=== PATIENT | male | born 1935 | race Caucasian/White ===

== ENCOUNTER 2018-05-18 12:24 | Emergency (ER) | payer SELFPAY ==
[~2018-05-18] VITALS: Ht 193 cm; Wt 117.9 kg
[2018-05-18] MEDS ORDERED: ATOR10 PO (12:54)
[2018-05-18] MEDS ORDERED: AMLO10 PO (12:54)
[2018-05-18] MEDS ORDERED: ALLO300 PO (12:54)
[2018-05-18] MEDS ORDERED: BICALUTAMIDE50 MG PO (12:54)
[2018-05-18] MEDS ORDERED: CALCIUM 500 +1 EAC3 PO (12:55)
[2018-05-18] MEDS ORDERED: DIGOX125 MCG PO (12:56)
[2018-05-18] MEDS ORDERED: Fish Oil 10001000 MG PO (12:56)
[2018-05-18] MEDS ORDERED: LUPRON DEPOT45 MG IM (12:57)
[2018-05-18 12:58] LABS: BASOPHILS ABSOLUTE AUTO 0.01 K/mm3 (0.00-0.23); BASOPHILS PERCENT AUTO 0 % (0-2); EOSINOPHILS ABSOLUTE AUTO 0.04 K/mm3 (0.00-0.68); EOSINOPHILS PERCENT AUTO 0 % (0-6); Hematocrit 45.6 % (37.0-53.0); Hemoglobin 14.6 g/dL (13.5-17.5); IMMATURE GRAN ABSOLUTE AUTO 0.05 K/mm3 (0.00-0.10); IMMATURE GRAN PERCENT AUTO 1 % (0-1); LYMPHOCYTES ABSOLUTE AUTO 1.52 K/mm3 (0.84-5.20); LYMPHOCYTES PERCENT AUTO 16 % (21-46); MONOCYTES ABSOLUTE AUTO 0.64 K/mm3 (0.16-1.47); MONOCYTES PERCENT AUTO 7 % (4-13); Mean Corpuscular HGB 30.2 pg (26.0-34.0); Mean Corpuscular Volume 94 fL (80-100); Mean Platelet Volume 10.8 fL (9.1-12.4); NEUTROPHILS ABSOLUTE AUTO 7.14 K/mm3 (1.96-9.15); NEUTROPHILS PERCENT AUTO 76 % (41-73); Platelet Count 224 K/mm3 (150-400); RDW Coefficient Variation 13.7 % (11.7-14.2); RDW Standard Deviation 48.2 fL (35.1-46.3); Red Blood Cell Count 4.83 M/mm3 (4.30-5.90)
[2018-05-18] MEDS ORDERED: Metoprolol Tart50 MG PO (12:58)
[2018-05-18] MEDS ORDERED: LISI5 PO (12:58)
[2018-05-18] MEDS ORDERED: TAMS.4ER PO (12:59)
[2018-05-18 13:00] LABS: Bilirubin, Urine Neg (Neg); Blood, Urine 2+ (Neg); Glucose Qualitative, Urine 2+ (Neg); Ketones, Urine Neg (Neg); Leukocyte Esterase, Urine Neg (Neg); Nitrite, Urine Neg (Neg); Protein, Urine 4+ (Neg); Specific Gravity, Urine 1.015 (1.003-1.022); Urobilinogen, Urine NORM (Normal)
[2018-05-18 13:12] LABS: Bun/Creatinine Ratio 13.5 (12.0-20.0); Calcium, Blood 9.3 mg/dL (8.5-10.1); Creatinine, Blood 3.42 mg/dL (0.60-1.20); Potassium, Blood 4.1 mmol/L (3.5-5.5)
[2018-05-18 13:29] LABS: Appearance, Urine Clear (Clear); Color, Urine Yellow (P-Yellow); Squamous Epithelial Cells Few /hpf (Few)
[2018-05-18 13:30] LABS: Bacteria Not Seen /hpf; Red Blood Cells, Urine 0-2 /hpf (0-2); White Blood Cells, Urine Not Seen /hpf (0-5)
[2018-05-18] MEDS ORDERED: COLCRYS0.6 MG PO (19:43)
== END 2018-05-18 14:39 | disposition home or self-care (01) ==
LOC: ER 12:24
PROVIDERS: Emergency Medicine
DX: R53.1 Weakness (principal); I12.9 Hypertensive chronic kidney disease with stage 1 through stage 4 chronic kidney disease, or unspecified chronic kidney disease; E11.22 Type 2 diabetes mellitus with diabetic chronic kidney disease; N18.9 Chronic kidney disease, unspecified; R29.6 Repeated falls; F17.210 Nicotine dependence, cigarettes, uncomplicated; Z88.8 Allergy status to other drugs, medicaments and biological substances; Z91.018 Allergy to other foods; Z79.899 Other long term (current) drug therapy; W19.XXXA Unspecified fall, initial encounter
CPT/HCPCS: 36415; 70450; 71045; 80048; 81001; 85025; 93005; 93010; 99285-25

== ENCOUNTER 2018-10-30 16:31 | Emergency (ER) | payer MEDICARE ==
[~2018-10-30] VITALS: Ht 193 cm; Wt 99.8 kg
[~2018-10-30 16:31] MED LIST: ALLO300 PO; AMLO10 PO; ATOR10 PO; BICALUTAMIDE50 MG PO; CALCIUM 500 +1 EAC3 PO; COLCRYS0.6 MG PO; DIGOX125 MCG PO; Fish Oil 10001000 MG PO; LISI5 PO; LUPRON DEPOT45 MG IM; Metoprolol Tart50 MG PO; TAMS.4ER PO
[2018-10-30 17:03] LABS: BASOPHILS ABSOLUTE AUTO 0.01 K/mm3 (0.00-0.23); BASOPHILS PERCENT AUTO 0 % (0-2); EOSINOPHILS ABSOLUTE AUTO 0.12 K/mm3 (0.00-0.68); EOSINOPHILS PERCENT AUTO 1 % (0-6); Hematocrit 35.5 % (37.0-53.0); Hemoglobin 11.3 g/dL (13.5-17.5); IMMATURE GRAN ABSOLUTE AUTO 0.05 K/mm3 (0.00-0.10); IMMATURE GRAN PERCENT AUTO 1 % (0-1); LYMPHOCYTES ABSOLUTE AUTO 1.34 K/mm3 (0.84-5.20); LYMPHOCYTES PERCENT AUTO 15 % (21-46); MONOCYTES ABSOLUTE AUTO 0.59 K/mm3 (0.16-1.47); MONOCYTES PERCENT AUTO 7 % (4-13); Mean Corpuscular HGB 30.1 pg (26.0-34.0); Mean Corpuscular HGB Conc 31.8 g/dL (31.5-36.5); Mean Corpuscular Volume 94 fL (80-100); NEUTROPHILS ABSOLUTE AUTO 6.91 K/mm3 (1.96-9.15); NEUTROPHILS PERCENT AUTO 77 % (41-73); Platelet Count 215 K/mm3 (150-400); RDW Coefficient Variation 14.1 % (11.7-14.2); RDW Standard Deviation 48.9 fL (35.1-46.3); Red Blood Cell Count 3.76 M/mm3 (4.30-5.90); White Blood Cell Count 9.02 K/mm3 (4.00-11.30)
[2018-10-30 17:31] LABS: Alanine Aminotransfer (ALT/SGP 45 U/L (12-78); Albumin, Blood 1.9 g/dL (3.4-5.0); Albumin/Globulin Ratio 0.4 (0.8-1.8); Alk Phos 115 U/L (50-136); Anion Gap 7 mmol/L (6-16); Aspartate Aminotrans (AST/SGOT 43 U/L (12-37); Bilirubin, Total 0.5 mg/dL (0.1-1.0); Blood Urea Nitrogen 58 mg/dL (8-24); Bun/Creatinine Ratio 17.3 (12.0-20.0); CO2, Blood 23 mmol/L (21-32); Calcium, Blood 8.8 mg/dL (8.5-10.1); Chloride, Blood 110 mmol/L (98-108); Creatinine, Blood 3.36 mg/dL (0.60-1.20); Ethanol (Alcohol), Blood, Med <3 mg/dL; Globulin, Blood 4.4 g/dL (2.2-4.0); Glomerular Filtration Rate 19 (60-); Glucose, Blood 152 mg/dL (70-99); Potassium, Blood 3.4 mmol/L (3.5-5.5); Sodium, Blood 140 mmol/L (136-145); Total Protein, Blood 6.3 g/dL (6.4-8.2); Troponin I 0.032 ng/mL (0.000-0.040)
[2018-10-30 18:38] LABS: Source, Urine Clean Catch
[2018-10-30 18:43] LABS: Bilirubin, Urine Neg (Neg); Blood, Urine 2+ (Neg); Glucose Qualitative, Urine 1+ (Neg); Ketones, Urine 1+ (Neg); Leukocyte Esterase, Urine 1+ (Neg); Nitrite, Urine Neg (Neg); Protein, Urine 4+ (Neg); Urobilinogen, Urine NORM (Normal)
[2018-10-30] MEDS ORDERED: Prednisone20 MG PO (18:52)
[2018-10-30 18:56] LABS: U Amphetamine Screen Not Detected; U Barbituate Screen Not Detected; U Benzodiazapine Screen Not Detected; U Buprenorphine Screen Not Detected; U Cannabinoids Screen Not Detected; U Cocaine Screen Not Detected; U Methadone Screen Not Detected; U Methamphetamine Screen Not Detected; U Opiates Screen Not Detected; U Oxycodone Screen Not Detected; U Phencyclidine Screen Not Detected; U Propoxyphene Screen Not Detected
[2018-10-30 18:57] LABS: Appearance, Urine Clear (Clear); Color, Urine Yellow (P-Yellow)
[2018-10-30 19:02] LABS: Red Blood Cells, Urine 0-2 /hpf (0-2); Squamous Epithelial Cells Few /hpf (Few)
[2018-10-30 19:03] LABS: Bacteria Many /hpf
[2018-10-30] MEDS ORDERED: CEPH500 PO (19:11)
== END 2018-10-30 19:25 | disposition home or self-care (01) ==
LOC: ER 16:31
PROVIDERS: Physician Assistant
DX: J44.1 Chronic obstructive pulmonary disease with (acute) exacerbation (principal); R62.7 Adult failure to thrive; I48.91 Unspecified atrial fibrillation; F17.210 Nicotine dependence, cigarettes, uncomplicated; Z79.52 Long term (current) use of systemic steroids; Z79.899 Other long term (current) drug therapy
CPT/HCPCS: 70450; 71046; 80053; 81001; 83880; 84484; 85025; 87086; 93005; 93010; 94640; 96374; 96375; 99285-25; G0480; J0696; J2930

== ENCOUNTER 2018-12-07 16:49 | Inpatient (IN) | payer MEDICARE ==
[~2018-12-07] VITALS: Ht 193 cm; Wt 94.5 kg
[~2018-12-07 16:49] MED LIST changes: +CEPH500 PO; +Prednisone20 MG PO
[2018-12-07 17:34] LABS: BASOPHILS ABSOLUTE AUTO 0.02 K/mm3 (0.00-0.23); BASOPHILS PERCENT AUTO 0 % (0-2); EOSINOPHILS PERCENT AUTO 1 % (0-6); Hemoglobin 11.3 g/dL (13.5-17.5); IMMATURE GRAN ABSOLUTE AUTO 0.03 K/mm3 (0.00-0.10); IMMATURE GRAN PERCENT AUTO 0 % (0-1); LYMPHOCYTES ABSOLUTE AUTO 1.44 K/mm3 (0.84-5.20); LYMPHOCYTES PERCENT AUTO 19 % (21-46); MONOCYTES ABSOLUTE AUTO 0.43 K/mm3 (0.16-1.47); MONOCYTES PERCENT AUTO 6 % (4-13); Mean Corpuscular HGB 29.4 pg (26.0-34.0); Mean Corpuscular HGB Conc 30.5 g/dL (31.5-36.5); Mean Corpuscular Volume 96 fL (80-100); Mean Platelet Volume 11.2 fL (9.1-12.4); NEUTROPHILS ABSOLUTE AUTO 5.57 K/mm3 (1.96-9.15); NEUTROPHILS PERCENT AUTO 73 % (41-73); Platelet Count 195 K/mm3 (150-400); RDW Coefficient Variation 14.6 % (11.7-14.2); RDW Standard Deviation 52.1 fL (35.1-46.3); Red Blood Cell Count 3.84 M/mm3 (4.30-5.90); White Blood Cell Count 7.59 K/mm3 (4.00-11.30)
[2018-12-07 18:03] LABS: Albumin, Blood 2.3 g/dL (3.4-5.0); Albumin/Globulin Ratio 0.5 (0.8-1.8); Bilirubin, Total 0.5 mg/dL (0.1-1.0); Calcium, Blood 8.5 mg/dL (8.5-10.1); Creatinine, Blood 3.61 mg/dL (0.60-1.20); Globulin, Blood 4.3 g/dL (2.2-4.0); Potassium, Blood 4.1 mmol/L (3.5-5.5); Total Protein, Blood 6.6 g/dL (6.4-8.2)
[2018-12-07] MEDS ORDERED: PANT20 PO (18:46)
[2018-12-07] MEDS ORDERED: FINA5 PO (20:34)
[2018-12-07] MEDS ORDERED: TAMS.4ER PO (20:34)
[2018-12-07] MEDS ORDERED: Oyster Shell C500 MG PO (22:06)
[2018-12-07] MEDS ORDERED: ERGO400 PO (22:07)
--- NOTE | 2018-12-07 22:56 | NUR ---
PROVIDER COMMUNICATION MEGHNA CAMERON NOTIFIED OVER PHONE AT THIS TIME OF BNP; ORDER FOR IV MAG CLARIFED AND NOTIFIED OF PT DESIRE TO BE FULL CODE.
[2018-12-08 05:26] LABS: Hematocrit 33.5 % (37.0-53.0); Hemoglobin 10.5 g/dL (13.5-17.5); Mean Corpuscular HGB 29.8 pg (26.0-34.0); Mean Corpuscular HGB Conc 31.3 g/dL (31.5-36.5); Mean Corpuscular Volume 95 fL (80-100); Mean Platelet Volume 11.1 fL (9.1-12.4); Platelet Count 193 K/mm3 (150-400); RDW Coefficient Variation 14.8 % (11.7-14.2); RDW Standard Deviation 50.8 fL (35.1-46.3); Red Blood Cell Count 3.52 M/mm3 (4.30-5.90); White Blood Cell Count 7.35 K/mm3 (4.00-11.30)
[2018-12-08 05:46] LABS: International Normalized Ratio 1.02; Prothrombin Time Results 10.8 Sec (9.7-11.5)
[2018-12-08 05:53] LABS: Albumin, Blood 2.1 g/dL (3.4-5.0); Albumin/Globulin Ratio 0.6 (0.8-1.8); Bilirubin, Total 0.5 mg/dL (0.1-1.0); Bun/Creatinine Ratio 9.8 (12.0-20.0); Calcium, Blood 8.3 mg/dL (8.5-10.1); Creatinine, Blood 3.48 mg/dL (0.60-1.20); Globulin, Blood 3.8 g/dL (2.2-4.0); Potassium, Blood 3.7 mmol/L (3.5-5.5); Total Protein, Blood 5.9 g/dL (6.4-8.2); Troponin I 0.11 ng/mL (0.000-0.040)
--- NOTE | 2018-12-08 06:03 | NUR ---
SHIFT SUMMARY PT A&O X4 T/O SHIFT. PT ADMITTED TO UNIT FROM ER. PT STOOD AND AMBULATED TO BED FROM [facility]. RA; BP MONITORED AND MANAGED PER EMAR. TELEMETRY IN PLACE; SR WITH PAC'S PER MAINTENANCE SHOP MANAGER THIS AM AT 66. PT DENIES SOB, NAUSEA AND CP. ABD PAIN MANAGED PER EMAR. RA.SCD'S TO BLE'S. CALL LIGHT IN REACH. WCTM UNTIL REPORT TO DAY SHIFT RN.
--- NOTE | 2018-12-08 10:35 | NUR ---
Echocardiogram completed.
--- NOTE | 2018-12-08 11:44 | NUR ---
Spiritual care visit conducted. Patient openly shared about the loss of his living arrangements due to the duplex being condemned, about his spiritual journey and about his family unit complications. Patient voiced some concern regarding his upcoming surgery and about getting well enough to move to [place] to see his "girlfriend." I listened empathically, provided companionship, facilitated a life review. explored patient's belief system and provided prayer (for his surgery and his overall health). Patient responded well and displayed evidence of restored raheel.
--- NOTE | 2018-12-08 14:50 | NUR ---
ASSUMED CARE OF PATIENT AT THIS TIME. PATIENT SLEEPING W/O S/SX OF DISCOMFORT.
--- NOTE | 2018-12-08 18:16 | NUR ---
PATIENT DENIES PAIN/NAUSEA AT THIS TIME. VOIDING WELL TO URINAL. NO ACUTE CHANGES. NPO AFTER 2400 FOR PLAN TO OC TO OR TOMORROW.
[2018-12-09 04:05] LABS: BASOPHILS ABSOLUTE AUTO 0.02 K/mm3 (0.00-0.23); BASOPHILS PERCENT AUTO 0 % (0-2); EOSINOPHILS ABSOLUTE AUTO 0.15 K/mm3 (0.00-0.68); EOSINOPHILS PERCENT AUTO 2 % (0-6); Hematocrit 33.7 % (37.0-53.0); Hemoglobin 10.4 g/dL (13.5-17.5); IMMATURE GRAN ABSOLUTE AUTO 0.02 K/mm3 (0.00-0.10); IMMATURE GRAN PERCENT AUTO 0 % (0-1); LYMPHOCYTES ABSOLUTE AUTO 1.41 K/mm3 (0.84-5.20); LYMPHOCYTES PERCENT AUTO 21 % (21-46); MONOCYTES ABSOLUTE AUTO 0.57 K/mm3 (0.16-1.47); MONOCYTES PERCENT AUTO 8 % (4-13); Mean Corpuscular HGB Conc 30.9 g/dL (31.5-36.5); Mean Corpuscular Volume 94 fL (80-100); Mean Platelet Volume 11.1 fL (9.1-12.4); NEUTROPHILS ABSOLUTE AUTO 4.65 K/mm3 (1.96-9.15); NEUTROPHILS PERCENT AUTO 68 % (41-73); Platelet Count 186 K/mm3 (150-400); RDW Coefficient Variation 14.5 % (11.7-14.2); RDW Standard Deviation 50.1 fL (35.1-46.3); Red Blood Cell Count 3.59 M/mm3 (4.30-5.90); White Blood Cell Count 6.82 K/mm3 (4.00-11.30)
[2018-12-09 04:24] LABS: Albumin, Blood 1.9 g/dL (3.4-5.0); Albumin/Globulin Ratio 0.5 (0.8-1.8); Bilirubin, Total 0.7 mg/dL (0.1-1.0); Bun/Creatinine Ratio 9.8 (12.0-20.0); Calcium, Blood 8.3 mg/dL (8.5-10.1); Creatinine, Blood 3.28 mg/dL (0.60-1.20); Globulin, Blood 3.8 g/dL (2.2-4.0); Potassium, Blood 3.8 mmol/L (3.5-5.5); Total Protein, Blood 5.7 g/dL (6.4-8.2)
--- NOTE | 2018-12-09 05:21 | NUR ---
SHIFT SUMMARY LYING IN SEMI FOWLERS WITH EYES CLOSED. PLEASANT AND COOPERATIVE, RESTED WITH EASE. DENIES PAIN, DISCOMFORT, OR FURTHER NEEDS AT THIS TIME. SAFETY MEASURES IN PLACE. WILL GIVE HAND OFF TO ONCOMING SHIFT USING SBAR.
--- NOTE | 2018-12-09 11:13 | NUR ---
PT LEFT FOR SURGERY AT 1114
--- NOTE | 2018-12-09 11:40 | NUR ---
PT ESCORTED TO DAY SURGERY AT APPROXIMATELY 1115. ANTIBIOTIC SENT WITH DAY SURGERY NURSES.
--- NOTE | 2018-12-09 11:51 | NUR ---
ASSESSMENT ASSESSMENT BY ROSS STUDENT NURSE REVIEWED. THIS RN AGREES WITH ASSESSMENT BY ROSS STUDENT NURSE.
--- NOTE | 2018-12-09 14:08 | NUR ---
PT ARRIVED BACK TO THE ROOM AT APPROXIMATELY 1400. PT DROWSY AND MILDLY CONFUSED. PT ORIENTED TO SELF, PLACE, AND SLIGHTLY CONFUSED ABOUT WHY HE IS IN THE HOSPITAL. BED ALARM IN PLACE. PT DENIES PAIN. WILL CONTINUE TO MONITOR.
--- NOTE | 2018-12-09 14:17 | NUR ---
PT ARRIVED FROM SURGERY AT APPROXIMATELY 1400
--- NOTE | 2018-12-09 17:11 | NUR ---
SHIFT SUMMARY PT WAS ADMITTED FOR ACUTE CHOLECYSTITIS, PT IS ON 2L O2, USES URINAL, FULL CODE, HARD OF HEARING, HTN POST-SURGERY SUCCESSFULLY CONTROLED WITH HYDROLOZINE.
--- NOTE | 2018-12-09 18:26 | NUR ---
SHIFT SUMMARY PT POST-OP LAP STEPHANIE THIS SHIFT. PT DENIES PAIN. PT HAS NAPPED POST-OP. MILD CONFUSION POST-OP, PT REORIENTS EASILY. BED ALARM IN PLACE. PT TOLERATING REGULAR DIET. HTN TREATED WITH IV HYDRALAZINE THIS SHIFT. VSS. WILL MONITOR UNTIL REPORT TO ONCOMING RN.
--- NOTE | 2018-12-09 20:10 | NUR ---
OBTAINED ORDER FOR CONTINUOUS BIOX DUE TO PT DESATING TO 84% WHILE SLEEPING. O2 TITRATED TO MAINTAIN > 90%. WILL CONTINUE TO MONITOR.
--- NOTE | 2018-12-09 22:00 | NUR ---
PT BETTER ABLE TO MAINTAIN O2 SAT HE WAKES UP. WILL CONTINUE TO MONITOR.
--- NOTE | 2018-12-10 07:11 | NUR ---
SHIFT SUMMARY LYING ON RIGHT SIDE WITH EYES CLOSED. PLEASANT AND COOPERATIVE, RESTED WITH EASE. MUCH IMPROVEMENT WITH OXYGENATION NOTED. DENIES PAIN, DISCOMFORT, OR FURTHER NEEDS AT THIS TIME. SAFETY MEASURES IN PLACE. WILL GIVE HAND OFF TO ONCOMING SHIFT USING SBAR.
[2018-12-10 08:48] LABS: BASOPHILS ABSOLUTE AUTO 0.01 K/mm3 (0.00-0.23); BASOPHILS PERCENT AUTO 0 % (0-2); EOSINOPHILS ABSOLUTE AUTO 0.01 K/mm3 (0.00-0.68); EOSINOPHILS PERCENT AUTO 0 % (0-6); Hematocrit 34.5 % (37.0-53.0); Hemoglobin 10.7 g/dL (13.5-17.5); IMMATURE GRAN ABSOLUTE AUTO 0.03 K/mm3 (0.00-0.10); IMMATURE GRAN PERCENT AUTO 0 % (0-1); LYMPHOCYTES ABSOLUTE AUTO 1.25 K/mm3 (0.84-5.20); LYMPHOCYTES PERCENT AUTO 18 % (21-46); MONOCYTES ABSOLUTE AUTO 0.52 K/mm3 (0.16-1.47); MONOCYTES PERCENT AUTO 7 % (4-13); Mean Corpuscular HGB 29.6 pg (26.0-34.0); Mean Corpuscular Volume 96 fL (80-100); Mean Platelet Volume 11.3 fL (9.1-12.4); NEUTROPHILS PERCENT AUTO 75 % (41-73); Platelet Count 178 K/mm3 (150-400); RDW Coefficient Variation 14.5 % (11.7-14.2); RDW Standard Deviation 50.5 fL (35.1-46.3); Red Blood Cell Count 3.61 M/mm3 (4.30-5.90); White Blood Cell Count 7.12 K/mm3 (4.00-11.30)
--- NOTE | 2018-12-10 09:00 | NUR ---
ASSESSMENT PT WAS ASSESSED BY THIS RN. ASSESSMENT DOCUMENTATION BY ROSS STUDENT NURSE WAS REVIEWED. THIS RN AGREES WITH ASSESSMENT DOCUMENTATION BY ROSS STUDENT NURSE.
[2018-12-10 09:12] LABS: Albumin/Globulin Ratio 0.5 (0.8-1.8); Bilirubin, Total 0.4 mg/dL (0.1-1.0); Bun/Creatinine Ratio 10.7 (12.0-20.0); Calcium, Blood 8.3 mg/dL (8.5-10.1); Creatinine, Blood 3.38 mg/dL (0.60-1.20); Globulin, Blood 4.1 g/dL (2.2-4.0); Potassium, Blood 4.1 mmol/L (3.5-5.5); Total Protein, Blood 6.1 g/dL (6.4-8.2)
--- NOTE | 2018-12-10 11:36 | NUR ---
PT EDUCATION GAVE PATIENT AND INSPIRATIONAL SPIROMETER AND EDUCATED HIM ON ITS PURPOSE AND USE.
--- NOTE | 2018-12-10 17:54 | NUR ---
PT TRANSFERRED SELF FROM CHAIR TO BED WITHOUT STAFF ASSISTANCE. TAB ALARM WAS HEARD AND PT WAS ALREADY IN BED. I ASSISTED PT TO LAY DOWN IN BED AND ARMED BED ALARM.
--- NOTE | 2018-12-10 19:14 | NUR ---
SHIFT SUMMARY PT ADMITTED FOR ACUTE CHOLECYSTITIS, PT IS ON 2L OF O2, WAS ABLE TO AMBULATE 50FT WITH GAIT BELT AND WALKER SUCCESSFULLY. PT MAY USE COMMODE, REGULAR DIET, POST-OP DAY 1. ALERT AND ORIENTED. PT TRANSFERED HIMSELF FROM CHAIR TO BED UNASSISTED. PT IS WEAK AT BASELINE.
--- NOTE | 2018-12-10 20:01 | NUR ---
SHIFT SUMMARY PAIN HAS BEEN MINIMAL THIS SHIFT. PT DENIES PASSING FLATUS. PT WAS ENCOURAGED TO GET OOB AND AMBULATE WITH ASSISTANCE THIS SHIFT; PT AMBULATED X1 WITH GAIT BELT, WALKER, ASSISTANCE AND OXYGEN. PT HAS REQUIRED 2L O2 T/O THE DAY. PT WAS EDUCATED TO USE INCENTIVE SPIROMETER AND ENCOURAGED TO USE T/O THE DAY. PT CONTINUED TO NEED OXYGEN, ATTEMPTS TO TITRATE O2 DOWN RESULTED IN DESATURATION. ABD REMAINS DISTENDED. VSS. REPORT GIVEN TO CHRISTIANO ADEN.
--- NOTE | 2018-12-11 06:00 | NUR ---
SHIFT SUMMARY LYING SEMI FOWLERS WITH EYES CLOSED. BOWEL TONES INCREASED AND CAN BE HEARD FROM ACROSS THE ROOM. DENIES PAIN, DISCOMFORT, OR FURTHER NEEDS AT THIS TIME. SAFETY MEASURES IN PLACE. WILL GIVE HAND OFF TO ONCOMING SHIFT USING SBAR.
[2018-12-11 09:32] LABS: BASOPHILS ABSOLUTE AUTO 0.02 K/mm3 (0.00-0.23); BASOPHILS PERCENT AUTO 0 % (0-2); EOSINOPHILS ABSOLUTE AUTO 0.16 K/mm3 (0.00-0.68); EOSINOPHILS PERCENT AUTO 3 % (0-6); Hematocrit 36.3 % (37.0-53.0); Hemoglobin 10.9 g/dL (13.5-17.5); IMMATURE GRAN ABSOLUTE AUTO 0.04 K/mm3 (0.00-0.10); IMMATURE GRAN PERCENT AUTO 1 % (0-1); LYMPHOCYTES ABSOLUTE AUTO 0.95 K/mm3 (0.84-5.20); LYMPHOCYTES PERCENT AUTO 18 % (21-46); MONOCYTES ABSOLUTE AUTO 0.29 K/mm3 (0.16-1.47); MONOCYTES PERCENT AUTO 5 % (4-13); Mean Corpuscular HGB 28.9 pg (26.0-34.0); Mean Corpuscular Volume 96 fL (80-100); Mean Platelet Volume 11.5 fL (9.1-12.4); NEUTROPHILS ABSOLUTE AUTO 3.98 K/mm3 (1.96-9.15); NEUTROPHILS PERCENT AUTO 73 % (41-73); Platelet Count 184 K/mm3 (150-400); RDW Coefficient Variation 14.7 % (11.7-14.2); Red Blood Cell Count 3.77 M/mm3 (4.30-5.90); White Blood Cell Count 5.44 K/mm3 (4.00-11.30)
[2018-12-11 10:02] LABS: Albumin/Globulin Ratio 0.5 (0.8-1.8); Bilirubin, Total 0.4 mg/dL (0.1-1.0); Bun/Creatinine Ratio 11.2 (12.0-20.0); Calcium, Blood 8.4 mg/dL (8.5-10.1); Creatinine, Blood 3.49 mg/dL (0.60-1.20); Globulin, Blood 4.3 g/dL (2.2-4.0); Total Protein, Blood 6.3 g/dL (6.4-8.2)
--- NOTE | 2018-12-11 13:02 | NUR ---
Initial palliative care consult: Desmond is an 83 year old with a history of HTN, COPD, BPH, depression, prostate CA, CKD stage 4, OA, hyperlipidemia. He had his gallbladder removed on 12/09/18. He reports that his him in 2006 and that he has a long time Thai speaking only significant other (2006), Shakira, who lives in [place]. He reports every couple of years he travels to [facility] [place] for a couple weeks to visit her. He reports there is a language barrier, however, Shakira's sister who lives in [place], translates for them. He reports that he and Shakira understand each other despite language and are very close. He is hopeful to recover and to save up enough money to purchase a plane ticket and fly down to visit Shakira. He reports that he recently has been living in the [facility] in [place]. He states he has been living at the [facility] about three months. Prior to that he was living in his truck. He goes out to eat for all of his meals. He has no local family. He has a cane and a walker that he uses. He reports he does very little walking. He is followed by the [facility]. He is working on the paperwork to apply for assistance through [facility]. He states that he has started the paperwork and then got sick and had to come into the hospital. He plans to finish the paperwork when he is discharged so that he can have an assessment. He reports he receives income from his VA disability, halfway and social security. His pain is currently managed on PO medications. He has a productive cough to a light miguel colored sputum. Educated on splinting with C&DB and using IS. Pt reports he smokes 10 cigarettes/day. His last smoke was on Tuesday. He reports that he has tried patches, gum, chantix and nothing works for him. He states he will not smoke while in the hospital but he reports that he plans to return to smoking once discharged. Educated on risks of smoking and encouraged cessation. He reports he has smoked since age 12. He reports his appetite is fair and no nausea. He reports about a 20 pound weight loss he thinks over a three month time. He states he just doesn't eat as much as he did when he was younger. He reports no BM, but is passing flatus. He also reports some blood when he wipes his rectal area. This was reported to his bedside nurse. Discussed code status and wishes for care with pt. He reports he has an AD on file at the [facility]. Faxed a request to [facility] medical records to obtain a copy of his AD. Discussed POLST form and pt filled out a POLST. Discussed each section of POLST and allowed for questions. At this time he would like to be a full code with full treatment. POLST placed on chart for MD to sign. Nursing notified of pt's wishes for full code. PT had a home O2 eval during my visit. He ambulated in the hallway with a walker. Plan is for a PT eval to determine a discharge plan. Pt would be at high risk for readmission as he lives alone and has no local family. Pt would accept HH or rehab services if he qualifies. Pt also interested in life alert information. Life alert info given. Will await PT eval.
[2018-12-11] MEDS ORDERED: OXYC5 PO (18:03)
--- NOTE | 2018-12-11 19:25 | NUR ---
DISCHARGE SUMMARY PT A&OX4, VSS, LEFT VIA WC W/RN [facility], WITH ALL PERSONAL POSSESSIONS INCLUDING DISCHARGE PACKET W/CONTACT INFORMATION FOR CARDIO AND SURGICAL FU. DISCHARGE INSTRUCTIONS PROVIDED. PT REP UNDERSTANDING THOSE INSTRUCTIONS INCLUDING FU NO TUB BATHS, OK TO SHOWER. IV DC'D.
== END 2018-12-11 18:45 | disposition home or self-care (01) | DRG 417 ==
LOC: ER 16:49 → SURS 20:00
PROVIDERS: Family Medicine; Internal Medicine; Nurse Practitioner Acute Care; Physician Assistant; Surgery; ADMIT Internal Medicine
PROC: 0FT44ZZ Resection of Gallbladder, Percutaneous Endoscopic Approach (ICD-10-PCS; principal; 2018-12-09 11:30)
DX: K80.00 Calculus of gallbladder with acute cholecystitis without obstruction (principal); K85.10 Biliary acute pancreatitis without necrosis or infection; N18.4 Chronic kidney disease, stage 4 (severe); D64.9 Anemia, unspecified; I13.10 Hypertensive heart and chronic kidney disease without heart failure, with stage 1 through stage 4 chronic kidney disease, or unspecified chronic kidney disease; I95.9 Hypotension, unspecified; F32.9 Major depressive disorder, single episode, unspecified; J44.9 Chronic obstructive pulmonary disease, unspecified; Z85.820 Personal history of malignant melanoma of skin; Z85.46 Personal history of malignant neoplasm of prostate; F17.210 Nicotine dependence, cigarettes, uncomplicated
CPT/HCPCS: 36415; 71045; 74300; 80053; 83605; 83690; 83735; 83880; 84484; 85025; 85027; 85610; 88304; 93005; 93010; 93306; 94640; 94760; 94761; 94762; 96374; 96375; 97161; 97530; 99285-25; C1729; J0360; J1100; J1644; J1885; J1940; J2370; J2405; J2543; J2704; J3010; J3475; J7030; J7120